=== PATIENT | male | born 1955 | race Two or more races ===

== ENCOUNTER 2019-03-22 07:23 | Outpatient (CLI) | payer OTHER ==
[2019-03-26] MEDS ORDERED: GLUCOPHAGE XR750 MG PO (10:35)
[2019-03-26] MEDS ORDERED: ZOLOFT25 MG PO (10:35)
== END 2019-03-22 16:58 | disposition home or self-care (01) ==
LOC: LAB 07:23
DX: I10 Essential (primary) hypertension (principal)

== ENCOUNTER 2019-03-28 06:51 | Day surgery (SDC) | payer OTHER ==
[~2019-03-28 06:51] MED LIST: GLUCOPHAGE XR750 MG PO; ZOLOFT25 MG PO
== END 2019-03-28 15:55 | disposition home or self-care (01) ==
LOC: CIR.AMB 06:51
DX: M75.121 Complete rotator cuff tear or rupture of right shoulder, not specified as traumatic (principal)